=== PATIENT | female | born 1955 | race Caucasian/White ===

== ENCOUNTER 2017-09-08 12:05 | Observation (INO) | payer SELFPAY ==
--- NOTE | 2017-09-08 12:06 | EDPHY ---
HPI/HX/ROS/PE/MDM Narrative: CHIEF COMPLAINT: Abdominal pain HPI: This patient is a 62 year old female arriving via EMS complaining of burning abdominal pain onset this morning. She has history of ulcers, and her discomfort began similarly to her ulcer pain, but is now more intense than it has been before. The pain is primarily burning with some pressure sensation, and has worsened gradually since onset. She endorses nausea, but has not vomited. She denies diarrhea or other bowel or urinary complaints. She was initially evaluated at urgent care, but was transferred here to the emergency department by ambulance. Per EMS report, they were unable to obtain a blood pressure in transport, but the patient remained alert. She denies history of abdominal surgery. She denies fever, chest pain, shortness of breath, headache, or other associated symptoms. REVIEW OF SYSTEMS: Aside from elements discussed in the HPI, a comprehensive 10-point review of systems was reviewed and is negative. PMH: Stomach ulcers. Hysterectomy. SOCIAL HISTORY: No tobacco use. No alcohol use. PHYSICAL EXAM: General:Patient is alert, in no acute distress. ENT:Eyes are normal to inspection. ENT inspection normal. Neck: Normal inspection. Full range of motion. Respiratory:No respiratory distress. Breath sounds normal bilaterally. Cardiovascular: Regular rate and rhythm. Strong peripheral pulses. Normal cap refill. Abdomen: Moderate epigastric tenderness. There are no peritoneal signs. There are normal bowel sounds. Back: Normal to inspection. No tenderness to palpation. Skin: Normal color. No rash. Warm and dry. Extremities: Normal appearance. Full range of motion. Neuro: Oriented x3. Normal motor function. Normal sensory function. ED Course: 12:06 Received EMS report at bedside. 62 year old female presents with epigastric pain onset this morning. Exam reveals moderate epigastric tenderness. Plan US abdomen, GI cocktail. 13:[address] Bass, radiologist. US abdomen reveals cholelithiasis with gallstone lodged in the gallbladder neck and dilated common bile duct. See full imaging results below. 14:[address] De La Cruz, general surgeon. He will consult. Last oral intake 8:00am. 14:29 Dr. De La Cruz accepts admission for cholecystitis. - Data Points Imaging Results: Imaging Impressions Abdomen Ultrasound 09/08/17 12:55 Impression: 1. Cholelithiasis with gallstone lodged in the gallbladder neck. Gallbladder sludge. 2. Dilated common bile duct 10 mm with mild intrahepatic biliary ductal dilation. 3. No pericholecystic fluid Findings and recommendations discussed with Emergency Department physician, Landen Monge MD, at 13:57 hour, 09/08/2017. Final report concurs with initial preliminary interpretation. Imaging: Discussed imaging studies w/ call or contact centre coach Radiologist Laboratory Results: Laboratory Results 09/08/17 12:15 09/08/17 12:15 09/08/17 09/08/17 09/08/17 13:00 12:15 12:15 WBC 12.93 10^3/uL H 10^3/uL (3.80-9.50) RBC 3.94 10^6/uL L 10^6/uL (4.18-5.33) Hgb 12.7 g/dL g/dL (12.6-16.3) Hct 36.1 % L % (38.0-47.0) MCV 91.6 fL fL (81.5-99.8) MCH 32.2 pg pg (27.9-34.1) MCHC 35.2 g/dL g/dL (32.4-36.7) RDW 11.9 % % (11.5-15.2) Plt Count 241 10^3/uL 10^3/uL (150-400) MPV 8.7 fL fL (8.7-11.7) Neut % (Auto) 78.1 % H % (39.3-74.2) Lymph % (Auto) 13.3 % L % (15.0-45.0) [place] % (Auto) 6.9 % % (4.5-13.0) Eos % (Auto) 0.9 % % (0.6-7.6) Baso % (Auto) 0.3 % % (0.3-1.7) Nucleat RBC Rel Count 0.0 % % (0.0-0.2) Absolute Neuts (auto) 10.10 10^3/uL H 10^3/uL (1.70-6.50) Absolute Lymphs (auto) 1.72 10^3/uL 10^3/uL (1.00-3.00) Absolute Monos (auto) 0.89 10^3/uL H 10^3/uL (0.30-0.80) Absolute Eos (auto) 0.12 10^3/uL 10^3/uL (0.03-0.40) Absolute Basos (auto) 0.04 10^3/uL 10^3/uL (0.02-0.10) Absolute Nucleated RBC 0.00 10^3/uL 10^3/uL (0-0.01) Immature Gran % 0.5 % % (0.0-1.1) Immature Gran # 0.06 10^3/uL 10^3/uL (0.00-0.10) Sodium 141 mEq/L mEq/L (134-144) Potassium 3.8 mEq/L mEq/L (3.5-5.2) Chloride 106 mEq/L mEq/L (97-110) Carbon Dioxide 27 mEq/l mEq/l (22-31) Anion Gap 8 mEq/L mEq/L (8-16) BUN 16 mg/dL mg/dL (7-23) Creatinine 0.8 mg/dL mg/dL (0.6-1.0) Estimated GFR > 60 Glucose 128 mg/dL H mg/dL (70-100) Calcium 8.8 mg/dL mg/dL (8.5-10.4) Total Bilirubin 0.8 mg/dL mg/dL (0.1-1.4) Conjugated Bilirubin 0.4 mg/dL mg/dL (0.0-0.5) Unconjugated Bilirubin 0.4 mg/dL mg/dL (0.0-1.1) AST 371 IU/L H IU/L (14-46) ALT 191 IU/L H IU/L (9-52) Alkaline Phosphatase 88 IU/L IU/L (38-126) Troponin I < 0.012 ng/mL ng/mL (0.000-0.034) Total Protein 5.6 g/dL L g/dL (6.3-8.2) Albumin 3.3 g/dL L g/dL (3.5-5.0) Lipase 200 IU/L IU/L (23-300) Urine Color CATALINA Urine Appearance HAZY Urine pH 7.0 (5.0-7.5) Ur Specific [place] 1.017 (1.002-1.030) Urine Protein 1+ H (NEGATIVE) Urine Ketones NEGATIVE (NEGATIVE) Urine Blood NEGATIVE (NEGATIVE) Urine Nitrate NEGATIVE (NEGATIVE) Urine Bilirubin NEGATIVE (NEGATIVE) Urine Urobilinogen 4.0 EU H EU (0.2-1.0) Ur Leukocyte Esterase NEGATIVE (NEGATIVE) Urine RBC 3-5 /hpf H /hpf (0-3) Urine WBC 3-5 /hpf H /hpf (0-3) Ur Epithelial Cells 1+ /lpf /lpf (NONE-1+) Urine Bacteria TRACE /hpf H /hpf (NONE SEEN) Hyaline Casts >182 /lpf H /lpf (0-1) Urine Mucus 2+ /lpf H /lpf (NONE-1+) Urine Glucose NEGATIVE (NEGATIVE) Medications Given: Discontinued Medications Al Hydroxide/Mg Hydroxide (Maalox Susp) 30 ml PO ONCE ONE Stop: 09/08/17 12:55 Last Admin: 09/08/17 13:12 Dose: 30 ml Hydromorphone HCl (Dilaudid) 0.5 mg IVP EDNOW ONE Stop: 09/08/17 12:55 Last Admin: 09/08/17 13:12 Dose: 0.5 mg Hyoscyamine Sulfate (Levsin, Hyomax-Sl) 0.25 mg PO ONCE ONE Stop: 09/08/17 12:55 Last Admin: 09/08/17 13:12 Dose: 0.25 mg Sodium Chloride (Ns) 1,000 mls @ 0 mls/hr IV EDNOW ONE; Wide Open PRN Reason: Protocol Stop: 09/08/17 12:16 Last Admin: 09/08/17 12:16 Dose: 1,000 mls Lidocaine (Lidocaine 2% Viscous) 15 ml PO ONCE ONE Stop: 09/08/17 12:55 Last Admin: 09/08/17 13:12 Dose: 15 ml General Initial Vital Signs: Initial Vital Signs Temperature (C) 36.4 C 09/08/17 12:05 Heart Rate 88 09/08/17 12:05 Respiratory Rate 18 09/08/17 12:05 Blood Pressure 93/65 L 09/08/17 12:05 O2 Sat (%) 95 09/08/17 12:05 O2 Delivery Mode Room Air Allergies/Adverse Reactions: Penicillins Allergy (Verified 09/08/17 12:13) Home Medications: Medication Instructions Recorded NK [No Known Home Meds] 09/08/17 Departure - Departure Disposition: [facility] Acute Clinical Impression: Cholelithiasis Qualifiers: Cholelithiasis location: gallbladder Cholecystitis presence: with cholecystitis Cholecystitis acuity: acute Biliary obstruction: without biliary obstruction Qualified Code(s): K80.00 - Calculus of gallbladder with acute cholecystitis without obstruction Condition: Fair Referrals: Patient,NotPresent [Unknown] - As per Instructions Report Scribed for: Landen Monge Report Scribed by: Sabiha Stahl Date of Report: 09/08/17 Time of Report: 13:56 Physician Review and Approval Statement: Portions of this note were transcribed by an ED scribe. I personally performed the history, physical exam, and medical decision making; and confirm the accuracy of the information in the transcribed note.
[2017-09-08] MEDS ORDERED: NS 1,000 ML IV ONE (12:15)
--- NOTE | 2017-09-08 12:16 | CPEKG ---
Heart Rate: 58 RR Interval: 1034 P-R Interval: 128 QRSD Interval: 88 QT Interval: 504 QTC Interval: 496 P Mcmillan: 79 QRS Mcmillan: 58 T Wave Mcmillan: 73 EKG Severity - BORDERLINE ECG - EKG Impression: SINUS RHYTHM EKG Impression: BORDERLINE T ABNORMALITIES, ANT-LAT LEADS EKG Impression: BORDERLINE PROLONGED QT INTERVAL Electronically Signed By: uGy Franklin 09-Sep-2017 21:55:13
[2017-09-08 12:22] LABS: % IMMATURE GRANULYOCYTES 0.5 % (0.0-1.1); ABSOLUTE IMMATURE GRANULOCYTES 0.06 10^3/uL (0.00-0.10); ADD DIFF? NO; ADD MORPH? NO; ADD SCAN? NO; ATYPICAL LYMPHOCYTE FLAG 0 (0-99); FRAGMENT RBC FLAG 0 (0-99); HEMATOCRIT 36.1 % (38.0-47.0); HEMOGLOBIN 12.7 g/dL (12.6-16.3); LEFT SHIFT FLG 0 (0-99); LIPEMIA HEMOLYSIS FLAG 90 (0-99); MEAN CELL HEMOGLOBIN 32.2 pg (27.9-34.1); MEAN CELL HEMOGLOBIN CONCENTR. 35.2 g/dL (32.4-36.7); MEAN CELL VOLUME 91.6 fL (81.5-99.8); MEAN PLATELET VOLUME 8.7 fL (8.7-11.7); PLATELET CLUMPS FLAG 20 (0-99); PLATELET COUNT 241 10^3/uL (150-400); RED BLOOD CELL COUNT 3.94 10^6/uL (4.18-5.33); RED CELL DISTRIBUTION WIDTH 11.9 % (11.5-15.2)
[2017-09-08 12:36] LABS: ALANINE AMINOTRANSFERASE 191 IU/L (9-52); ALBUMIN 3.3 g/dL (3.5-5.0); ALKALINE PHOSPHATASE 88 IU/L (38-126); ANION GAP 8 mEq/L (8-16); ASPARTATE AMINOTRANSFERASE 371 IU/L (14-46); BILIRUBIN,TOTAL 0.8 mg/dL (0.1-1.4); BILIRUBIN-CONJUGATED 0.4 mg/dL (0.0-0.5); BILIRUBIN-UNCONJUGATED 0.4 mg/dL (0.0-1.1); CALCIUM 8.8 mg/dL (8.5-10.4); CARBON DIOXIDE 27 mEq/l (22-31); CHLORIDE 106 mEq/L (97-110); CREATININE 0.8 mg/dL (0.6-1.0); GLOMERULAR FILTRATION RATE > 60; GLUCOSE 128 mg/dL (70-100); POTASSIUM 3.8 mEq/L (3.5-5.2); SODIUM 141 mEq/L (134-144); TOTAL PROTEIN 5.6 g/dL (6.3-8.2)
[2017-09-08 12:48] LABS: TROPONIN I < 0.012 ng/mL (0.000-0.034)
[2017-09-08] MEDS ORDERED: HYDROmorphONE/DILAUDID 1 MG/ML INJ IVP ONE (12:54)
[2017-09-08] MEDS ORDERED: LIDOCAINE 2% VISCOUS 15 ML UDCUP PO ONE (12:54)
[2017-09-08] MEDS ORDERED: HYOSCYAMINE SULFATE 0.125 MG TAB PO ONE (12:54)
[2017-09-08] MEDS ORDERED: MAG HYDROX/AL HYDROX/SIMETH 30 ML UDCUP PO ONE (12:54)
[2017-09-08 13:12] LABS: COLOR AMBER; LEUKOCYTE ESTERASE,URINE NEGATIVE (NEGATIVE); NITRITE,URINE NEGATIVE (NEGATIVE)
[2017-09-08 13:17] LABS: BACTERIA TRACE /hpf (NONE SEEN); HYALINE CASTS >182 /lpf (0-1); MUCUS 2+ /lpf (NONE-1+)
[2017-09-08] MEDS ORDERED: CLINDAMYCIN 900 MG/DEXTROSE 50 ML IV ONE (15:40)
--- NOTE | 2017-09-08 15:40 | PDGENHP ---
History and Physical - Chief Complaint RUQ pain - History of Present Illness Otherwise healthy 62-year-old female presents with abdominal pain since this a.m.. Patient states that she had dinner last night, went to bed. She woke this morning had some vague abdominal pain. She did attempt to eat a muffin and some water but immediately threw it up and since then has had some fairly consistent, colicky right upper quadrant pain which has worsened. She has been nauseated but not thrown up. She denies having fevers or chills. She describes the pain as right upper quadrant with radiation to the back, colicky in nature. The pain is 8/10 at its worst intensity and better with IV narcotics. She has never had pain like this before. History Information - Allergies/Home Medication List Allergies/Adverse Reactions: Penicillins Allergy (Verified 09/08/17 12:13) Home Medications: NK [No Known Home Meds] 09/08/17 [Last Taken Unknown] I have personally reviewed and updated: family history, medical history, social history, surgical history - Past Medical History Additional medical history: Stomach ulcers - Surgical History Additional surgical history: Hysterectomy, laparoscopic 17 years ago - Family History Positive for: non-pertinent - Social History Smoking Status: Current every day smoker Alcohol Use: Occasionally Review of Systems Review of Systems: ROS: 10pt was reviewed & negative except for what was stated in HPI & below Physical Exam Physical Exam: Temp Pulse Resp BP Pulse Ox 36.4 C 77 12 120/70 96 09/08/17 12:05 09/08/17 15:09 09/08/17 15:09 09/08/17 15:09 09/08/17 15:09 Constitutional: no apparent distress, appears nourished, not in pain Eyes: PERRL, anicteric sclera, EOMI Ears, Nose, Mouth, Throat: moist mucous membranes, hearing normal, ears appear normal, no oral mucosal ulcers Cardiovascular: regular rate and rhythym, no murmur, rub, or gallop, No edema Respiratory: no respiratory distress, no rales or rhonchi, clear to auscultation Gastrointestinal: other (Tender to palpation in the right upper quadrant with positive Melissa's) Skin: warm, normal color, no rashes or abrasions, no fluctuance, no induration, No mottled Musculoskeletal: full muscle strength, no muscle tenderness, normal joint ROM, no joint effusions Neurologic: AAOx3, sensation intact bilaterally, No weakness, No numbness Psychiatric: interacting appropriately, not anxious, not encephalopathic, thought process linear Lymph, Heme, Immunologic: no cervical LAD, no supraclavicular LAD Lab Data & Imaging Review 09/08/17 12:15 09/08/17 12:15 WBC 12.93 10^3/uL (3.80-9.50) H 09/08/17 12:15 RBC 3.94 10^6/uL (4.18-5.33) L 09/08/17 12:15 Hgb 12.7 g/dL (12.6-16.3) 09/08/17 12:15 Hct 36.1 % (38.0-47.0) L 09/08/17 12:15 MCV 91.6 fL (81.5-99.8) 09/08/17 12:15 MCH 32.2 pg (27.9-34.1) 09/08/17 12:15 MCHC 35.2 g/dL (32.4-36.7) 09/08/17 12:15 RDW 11.9 % (11.5-15.2) 09/08/17 12:15 Plt Count 241 10^3/uL (150-400) 09/08/17 12:15 MPV 8.7 fL (8.7-11.7) 09/08/17 12:15 Neut % (Auto) 78.1 % (39.3-74.2) H 09/08/17 12:15 Lymph % (Auto) 13.3 % (15.0-45.0) L 09/08/17 12:15 [place] % (Auto) 6.9 % (4.5-13.0) 09/08/17 12:15 Eos % (Auto) 0.9 % (0.6-7.6) 09/08/17 12:15 Baso % (Auto) 0.3 % (0.3-1.7) 09/08/17 12:15 Nucleat RBC Rel Count 0.0 % (0.0-0.2) 09/08/17 12:15 Absolute Neuts (auto) 10.10 10^3/uL (1.70-6.50) H 09/08/17 12:15 Absolute Lymphs (auto) 1.72 10^3/uL (1.00-3.00) 09/08/17 12:15 Absolute Monos (auto) 0.89 10^3/uL (0.30-0.80) H 09/08/17 12:15 Absolute Eos (auto) 0.12 10^3/uL (0.03-0.40) 09/08/17 12:15 Absolute Basos (auto) 0.04 10^3/uL (0.02-0.10) 09/08/17 12:15 Absolute Nucleated RBC 0.00 10^3/uL (0-0.01) 09/08/17 12:15 Immature Gran % 0.5 % (0.0-1.1) 09/08/17 12:15 Immature Gran # 0.06 10^3/uL (0.00-0.10) 09/08/17 12:15 Sodium 141 mEq/L (134-144) 09/08/17 12:15 Potassium 3.8 mEq/L (3.5-5.2) 09/08/17 12:15 Chloride 106 mEq/L (97-110) 09/08/17 12:15 Carbon Dioxide 27 mEq/l (22-31) 09/08/17 12:15 Anion Gap 8 mEq/L (8-16) 09/08/17 12:15 BUN 16 mg/dL (7-23) 09/08/17 12:15 Creatinine 0.8 mg/dL (0.6-1.0) 09/08/17 12:15 Estimated GFR > 60 09/08/17 12:15 Glucose 128 mg/dL (70-100) H 09/08/17 12:15 Calcium 8.8 mg/dL (8.5-10.4) 09/08/17 12:15 Total Bilirubin 0.8 mg/dL (0.1-1.4) 09/08/17 12:15 Conjugated Bilirubin 0.4 mg/dL (0.0-0.5) 09/08/17 12:15 Unconjugated Bilirubin 0.4 mg/dL (0.0-1.1) 09/08/17 12:15 AST 371 IU/L (14-46) H 09/08/17 12:15 ALT 191 IU/L (9-52) H 09/08/17 12:15 Alkaline Phosphatase 88 IU/L (38-126) 09/08/17 12:15 Troponin I < 0.012 ng/mL (0.000-0.034) 09/08/17 12:15 Total Protein 5.6 g/dL (6.3-8.2) L 09/08/17 12:15 Albumin 3.3 g/dL (3.5-5.0) L 09/08/17 12:15 Lipase 200 IU/L (23-300) 09/08/17 12:15 Urine Color CATALINA 09/08/17 13:00 Urine Appearance HAZY 09/08/17 13:00 Urine pH 7.0 (5.0-7.5) 09/08/17 13:00 Ur Specific [place] 1.017 (1.002-1.030) 09/08/17 13:00 Urine Protein 1+ (NEGATIVE) H 09/08/17 13:00 Urine Ketones NEGATIVE (NEGATIVE) 09/08/17 13:00 Urine Blood NEGATIVE (NEGATIVE) 09/08/17 13:00 Urine Nitrate NEGATIVE (NEGATIVE) 09/08/17 13:00 Urine Bilirubin NEGATIVE (NEGATIVE) 09/08/17 13:00 Urine Urobilinogen 4.0 EU (0.2-1.0) H 09/08/17 13:00 Ur Leukocyte Esterase NEGATIVE (NEGATIVE) 09/08/17 13:00 Urine RBC 3-5 /hpf (0-3) H 09/08/17 13:00 Urine WBC 3-5 /hpf (0-3) H 09/08/17 13:00 Ur Epithelial Cells 1+ /lpf (NONE-1+) 09/08/17 13:00 Urine Bacteria TRACE /hpf (NONE SEEN) H 09/08/17 13:00 Hyaline Casts >182 /lpf (0-1) H 09/08/17 13:00 Urine Mucus 2+ /lpf (NONE-1+) H 09/08/17 13:00 Urine Glucose NEGATIVE (NEGATIVE) 09/08/17 13:00 Visualized and Interpreted imaging results: Yes Interpretation: Ultrasound shows fluid filled gallbladder with stone impacted in the neck, also CBD dilatation without jayro stone. Assessment & Plan Assessment: Cholelithiasis (Acute) Plan: 62-year-old female with acute cholecystitis, question choledocholithiasis. We will plan to take the patient to the operating room for laparoscopic cholecystectomy with intraoperative cholangiogram. Risks benefits and alternatives discussed.
[2017-09-08] MEDS ORDERED: LR 1,000 ML IV ONE (17:13)
[2017-09-08] MEDS ORDERED: MIDAZOLAM 2 MG/2 ML VIAL IVP ONE (18:16)
--- NOTE | 2017-09-08 18:16 | PDANEPAE ---
ANE History of Present Illness acute cholecystitis ANE Past Medical History - Pulmonary History Hx Oxygen in Use at Home: No Hx Sleep Apnea: No - Endocrine History Hx Diabetes: No ANE Review of Systems Review of Systems: ANE Patient History - Allergies Allergies/Adverse Reactions: Penicillins Allergy (Verified 09/08/17 12:13) - Home Medications Home Medications: NK [No Known Home Meds] 09/08/17 [Last Taken Unknown] - NPO status NPO Since - Liquids (Date): 09/08/17 NPO Since - Liquids (Time): 08:00 NPO Since - Solids (Date): 09/08/17 NPO Since - Solids (Time): 08:00 - Smoking Hx Smoking Status: Current every day smoker - Alcohol Use Alcohol Use: Occasionally ANE Labs/Vital Signs - Labs Result Diagrams: 09/08/17 12:15 09/08/17 12:15 - Vital Signs Blood Pressure: 108/63 Heart Rate: 68 Respiratory Rate: 16 O2 Sat (%): 95 Height: 162.56 cm ANE Physical Exam - Airway Neck exam: FROM Mallampati Score: Class 1 Mouth exam: normal dental/mouth exam - Pulmonary Pulmonary: no respiratory distress - Cardiovascular Cardiovascular: regular rate and rhythym - ASA Status ASA Status: II ANE Anesthesia Plan Anesthesia Plan: general endotracheal anesthesia
[2017-09-08] MEDS ORDERED: LIDOCAINE 2% 5 ML SDV ONE (18:26)
[2017-09-08] MEDS ORDERED: fentaNYL 100 MCG/2 ML INJ ONE ×2 (18:26)
[2017-09-08] MEDS ORDERED: PROPOFOL 200 MG/20 ML VIAL ONE (18:27)
[2017-09-08] MEDS ORDERED: ONDANSETRON 4 MG/2 ML VIAL ONE (18:29)
[2017-09-08] MEDS ORDERED: ROCURONIUM 50 MG/5 ML VIAL ONE (18:29)
[2017-09-08] MEDS ORDERED: DEXAMETHASONE 4 MG/ML VIAL ONE (18:30)
[2017-09-08] MEDS ORDERED: OXYCODONE/APAP 5/325 TAB PO PRN (19:20)
[2017-09-08] MEDS ORDERED: PROMETHAZINE HCL 25 MG/ML INJ IVP PRN (19:20)
[2017-09-08] MEDS ORDERED: NALOXONE HCL 0.4 MG/ML INJ IVP PRN (19:20)
[2017-09-08] MEDS ORDERED: fentaNYL 100 MCG/2 ML INJ IVP PRN (19:20)
[2017-09-08] MEDS ORDERED: ONDANSETRON 4 MG/2 ML VIAL IVP PRN ×2 (19:20→19:59)
[2017-09-08] MEDS ORDERED: HYDROmorphONE/DILAUDID 1 MG/ML INJ IVP PRN (19:20)
[2017-09-08] MEDS ORDERED: MEPERIDINE 25 MG/ML SYR IVP PRN (19:20)
[2017-09-08] MEDS ORDERED: D5W 1/2 NS W/ 20 KCl/L 1,000 ML IV SCH (20:00)
--- NOTE | 2017-09-08 20:02 | POSTOPPROG ---
Post Op Note Date of Operation: 09/08/17 Surgeon: Iban De La Cruz Anesthesiologist: Kyree Anesthesia: GET(General Endotracheal) Pre-op Diagnosis: cholecystitis Post-op Diagnosis: same Procedure: lap cassy with IOC Findings: sick GB, critical view, IOC: no defects Inf/Abcess present in the surg proc area at time of surgery?: No EBL: Minimal Specimen(s): GB
--- NOTE | 2017-09-08 20:04 | POSTANESTH ---
Post Anesthetic Evaluation Cardiovascular Status: Normal, Stable Respiratory Status: Normal, Stable Level of Consciousness/Mental Status: Can Participate in Eval Pain Control: Adequate, Prn Tx Ordered Nausea/Vomiting Control: Adequate, Prn Tx Ordered Complications Possibly Related to Anesthesia: None Noted
--- NOTE | 2017-09-08 20:29 | GOP ---
[f rep st] OPERATIVE REPORT DATE OF OPERATION: 09/08/2017 SURGEON: Iban De La Cruz MD BOX STRAPPER: None. ANESTHESIA: General endotracheal ANESTHESIOLOGIST: Nicole Adorno MD PREOPERATIVE DIAGNOSIS: Acute cholecystitis. POSTOPERATIVE DIAGNOSIS: Acute cholecystitis. PROCEDURE PERFORMED: Laparoscopic cholecystectomy with intraoperative cholangiogram. FINDINGS: Very friable gallbladder wall which essentially avulsed off the liver bed with minimal ret raction. IOC performed which showed brisk spillage of contrast into the biliary tree and into the du odenum without apparent filling defects. SPECIMENS: Gallbladder. ESTIMATED BLOOD LOSS: 5 cc. DESCRIPTION OF PROCEDURE: The patient was greeted in the preoperative suite and again risks, benefit s, and alternatives were discussed. Consent was signed. She was then brought back to the operative suite, placed on the OR table in supine position. After all anesthesia machines, including SCDs, wer e on and functioning, World Health Organization time-out was performed. Antibiotics were given on-ca ll to the operating room. After successful induction of general anesthesia, the patient's abdomen wa s widely prepped and draped in typical sterile fashion. I entered the abdomen via an infraumbilical cutdown via her previous umbilical incision through which I passed a Veress needle. I achieved insuf flation with CO2 to 15 mmHg which was well tolerated by the patient. I entered the abdomen using the 10 mm Visiport. Once successfully in the abdomen, I placed 3 additional 5 mm trocars under direct v isualization; 1 in the subxiphoid, 2 in the right upper quadrant. Once this was done, I grasped the gallbladder and retracted it over the liver edge. It was very friable and with minimal traction most of it avulsed off the liver bed with minimal bleeding. Once this was done, I dissected out the infu ndibulum and identified what appeared to be the cystic duct. I grasped this with the Danielle clamp and shot an intraoperative cholangiogram, which showed brisk spillage of contrast into the duodenum and good radicalization of the biliary tree without any apparent filling defects. Once this was done, I then clipped and used an additional endo-loop on the cystic duct and divided it. I took the gallblad davina off the remainder of the liver bed, placed it in an EndoCatch bag and removed it. I then irrigat ed the right upper quadrant with 500 cc of sterile saline, noting clear effluent in the suction canis ter. Hemostasis within the liver bed was noted to be good. I never successfully frankly identified a cystic artery in the operative field but did not identify any pulsatile structures. After this was done, I instilled more local anesthesia into the port sites which were then removed. My infraumbili olena site was closed with an 0 Vicryl noting excellent fascial reapproximation. The skin was then charley sed with Monocryl over which Dermabond was placed. The patient was then extubated in the operative s uite and taken to PACU in satisfactory condition. DRAINS: None. COUNTS: All counts were reported as correct x2. /[id number]/MODL
[2017-09-08] MEDS ORDERED: BUPIVACAINE 0.25% 30 ML SDV ONE (20:35)
[2017-09-08] MEDS ORDERED: IOPAMIDOL (ISOVUE-M 200) 20 ML VIAL ONE ×2 (20:49→20:50)
[2017-09-08] MEDS: IBUPROFEN 600 MG TAB PO SCH (21:28)
[2017-09-08] MEDS: HYDROCODONE/APAP 5/325 TAB PO PRN (21:28)
[2017-09-09] MEDS: HYDROCODONE/APAP 5/325 TAB PO PRN ×2 (03:16→09:09)
[2017-09-09] MEDS: IBUPROFEN 600 MG TAB PO SCH ×2 (05:19→14:33)
--- NOTE | 2017-09-09 09:01 | SOAPPROG ---
SOAP Progress Note Assessment/Plan: Assessment/Plan: 62 Y F s/p lap cassy. Doing well. Seen with Dr. De La Cruz. D/c to home. S: pain controlled. tolerating diet. no n/v. O: alert, nad no jaundice no wob rrr abd soft, +BS, inc cdi 09/09/17 09:00 Objective: Vital Signs Temp Pulse Resp BP Pulse Ox 36.7 C 74 16 116/77 95 09/09/17 08:23 09/09/17 08:23 09/09/17 08:23 09/09/17 08:23 09/09/17 08:23 09/08/17 09/09/17 09/10/17 05:59 05:59 05:59 Intake Total 2750 Output Total 410 Balance 2340 ICD10 Worksheet Patient Problems: Problems Problem Status Onset Cholelithiasis Acute
[2017-09-09] MEDS ORDERED: FLU VACC QS 2017-18 (3YR+)/PF 0.5 ML SYR (FLUARIX QUAD) IM ONE (09:11)
[2017-09-09] MEDS ORDERED: PNEUMOCOCCAL 0.5ML VACCINE VIAL IM ONE (09:11)
[2017-09-09 13:55] VITALS: BP 117/71; PULSE 89; RESP 18; TEMP 98.4; O2SAT 93
--- NOTE | 2017-09-09 16:39 | ASDISCHSUM ---
Discharge Information Plan Status:Home with No Needs Medically Cleared to Leave:09/08/2017 Discharge Date:09/09/2017 02:45 PM CM D/C Disposition:Home, Routine, Self-Care ADT D/C Disposition:Home, Routine, Self-Care Projected Discharge Date:09/09/2017 02:45 PM Transportation at D/C:Family Discharge Delay Reason: Follow-Up Date:09/09/2017 02:45 PM Discharge Slot: Final Diagnosis: Placement Information Patient Contact Information Contact Name:RADHA Relationship:Other Address: Work Phone: City: [facility] Phone: State/Zip Code: Email: Financial Information Financial Class:Self-Pay Primary Plan Desc:SELF PAY Primary Plan Number: Secondary Plan Desc: Secondary Plan Number: Assessment Information Intervention Information
== END 2017-09-09 14:45 | disposition home or self-care (01) ==
LOC: F3E 16:19 → F1N 18:05
PROVIDERS: ADMIT Surgery; ATTEND Surgery
PROC: 0FT44ZZ Resection of Gallbladder, Percutaneous Endoscopic Approach (ICD-10-PCS; principal; 2017-09-08 17:00)
PROC: BF131ZZ Fluoroscopy of Gallbladder and Bile Ducts using Low Osmolar Contrast (ICD-10-PCS; 2017-09-08 17:00)
DX: K80.00 Calculus of gallbladder with acute cholecystitis without obstruction (principal); Z87.11 Personal history of peptic ulcer disease; Z23 Encounter for immunization; F17.210 Nicotine dependence, cigarettes, uncomplicated
CPT/HCPCS: G0008; G0009; G0378; J0171; J1100; J1170; J2250; J2405; J2704; J3010; Q9966

== ENCOUNTER 2017-12-16 08:10 | Emergency (ER) | payer MEDICAID ==
[2017-12-16 08:15] VITALS: BP 159/100; PULSE 89; RESP 16; TEMP 97.9; O2SAT 95
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
== END 2017-12-16 08:47 ==
PROC: 0HQ0XZZ Repair Scalp Skin, External Approach (ICD-10-PCS; principal; 2017-12-16)
DX: S01.01XA Laceration without foreign body of scalp, initial encounter (principal); F17.200 Nicotine dependence, unspecified, uncomplicated; Y09 Assault by unspecified means